=== PATIENT | male | born 1995 | race Caucasian/White ===

== ENCOUNTER 2024-01-29 01:06 | Day surgery (SDC) | payer OTHER, SELFPAY ==
[2024-01-28 19:12] VITALS: BP 104/75
[2024-01-28 19:28] LABS: % Basophils 0.3 % (0-2); % Eosinophils 1.7 % (0-6); % Immature Granulocytes 0.5 % (0-0.5); % Lymphocytes 29.6 % (20.5-51.1); % Monocytes 7.6 % (1.7-9.3); % Neutrophils 60.3 % (42.2-75.2); Absolute Eosinophils 0.1 10^3/uL (0-0.7); Absolute Lymphocytes 1.9 10^3/uL (1.2-3.4); Absolute Monocytes 0.5 10^3/uL (0.1-0.6); Hematocrit 39.7 % (39.0-52.0); Hemoglobin 14.9 g/dL (13.0-18.0); Mean Corp Hgb Conc. 37.5 g/dL (33.0-37.0); Mean Corpuscular Hgb 31.4 pg (27.0-31.0); Mean Corpuscular Volume 83.8 fL (80.0-94.0); Mean Platelet Volume 9.5 fL (7.4-10.4); Nucleated Red Blood Cells % 0 % (-); Platelet Count 194 10^3/uL (130-400); Red Blood Cell Count 4.74 10^6/uL (4.70-6.10); Red Cell Dist. Width 11.9 % (11.5-14.5); White Blood Cell Count 6.6 10^3/uL (4.8-10.8)
[2024-01-28 19:30] LABS: Urine Albumin Negative (Neg - Trace); Urine Bilirubin Negative (Negative); Urine Character Clear (Clear); Urine Color Straw; Urine Glucose Negative (Negative); Urine Ketone Negative (Negative); Urine Leukocyte Negative (Negative); Urine Nitrite Negative (Negative); Urine Occult Blood Negative (Negative); Urine Specific Gravity 1.005 (<1.030); Urine Urobilinogen Negative (Neg - 1+)
[2024-01-28 19:44] LABS: ALT (SGPT) 19 U/L (0-50); AST (SGOT) 25 U/L (17-59); Albumin 4.6 g/dl (3.5-5.0); Alkaline Phosphatase 44 U/L (38-126); Blood Urea Nitrogen 19 mg/dl (9-20); Calcium 9.4 mg/dl (8.4-10.2); Carbon Dioxide 29 mmol/L (22-30); Chloride 99 mmol/L (98-107); Glucose 90 mg/dl (70-99); Potassium 4.2 mmol/L (3.5-5.1); Sodium 136 mmol/L (135-145); Total Bilirubin 0.9 mg/dl (0.2-1.3); Total Protein 7.3 g/dl (6.3-8.2); eGFR > 60.00
[2024-01-28 19:45] LABS: Lipase 101 U/L (23-300)
[2024-01-28 20:21] VITALS: BP 106/89
--- NOTE | 2024-01-28 20:38 | ED.GENMED ---
History of Present Illness
General
Chief Complaint: Abdominal Pain
Source: patient and family
Exam Limitations: none
Time Seen by Provider: 01/28/24 20:24
Nursing documentation reviewed up to this point in time: agreed with
Travel History
Have you had any contact with someone who has COVID-19?: No
Do you have any symptoms of coronavirus? Fever > 100 degrees, chills, cough, shortness of breath, sore throat, loss of taste or smell, muscle aches, or headache?: No
History of Present Illness
History of Present Illness:
28-year male limited past medical history of crampy lower abdominal pain right greater than left onset a day or 2 ago with loose stools mild nausea no vomiting, no fevers appetite has been diminished but present no prior episodes no foreign travel,
social drinker not excess, no bloody stools, no dysuria no frequency no testicular pain
Past History
Past History
ED Past Medical History: None
ED Past Surgical History: None
Social History
Tobacco: Non-smoker
Alcohol: None
Drug: None
Personal: Single
Living: with family
Employment: Employed
Review of Systems
Review of Systems
All Other Systems: Not applicable
Constitutional: Denies fever, fatigue or chills
EENT: Reports no symptoms
Respiratory: Reports no symptoms
Cardiac: Denies chest pain
ABD/GI: Reports abdominal pain, nausea, diarrhea and pain; Denies anorexia
: Reports no symptoms; Denies dysuria or incontinence
Musculoskeletal: Reports no symptoms
Skin: Reports no symptoms
Neurological: Reports no symptoms
Phy Exam
Physical Exam
Physical Exam:
Physical Exam
General: no apparent distress, not acutely ill
Neck: No joint
Heart: s1/s2 regular rate and rhythm, no murmur. equal radial pulses.
Lungs: no acute respiratory distress. clear bilaterally
Abdomen: Tender right greater than left lower abdomen no CVA tender
Neuro: alert and oriented. no focal neurological deficits
Skin: no rash
Psychiatric: well kept. interactive and cooperative
Extremities: no edema.
Course
Orders/Labs/Results
Orders:
Orders
01/28/24 19:15
IV Insert/Care/Rem.- Treatment PRN
01/28/24 19:19
C-Reactive Protein Urgent
Comment: ADD ON
Complete Blood Count/With Diff Urgent
Comprehensive Metabolic Panel Urgent
Erythrocyte Sed Rate Urgent
Comment: ADD ON
Lipase Urgent
01/28/24 19:21
Urinalysis Reflex To Culture Urgent
Date Specimen was Collected: 01/28/24
Time Specimen was Collected: 19:15
01/28/24 20:32
Iohexol [Omnipaque] See Protocol PO NOW STA
01/28/24 20:33
Add On- LAB Urgent
Tests Added?: esr/crp
CT Abd/pel W Iv And Oral Contr Urgent
Comment:
Reason For Exam: rlq pain
0.9% Sodium Chloride 1000 ml [Nss] 1,000 ml IV BOLUS
Ketorolac [Toradol] 30 mg IV NOW STA
01/28/24 22:08
HYDROmorphone [Dilaudid] 0.5 mg IV NOW STA
Abnormal Lab Results
01/28/24
19:19
MCH 31.4 H pg
(27.0-31.0)
MCHC 37.5 H g/dL
(33.0-37.0)
C-Reactive Protein 35.70 H mg/L
(0.0-10.00)
01/28/24 19:19
01/28/24 19:19
Vital Signs
Initial and Last Documented VS:
Initial Vital Signs
Temp Pulse Resp BP Pulse Ox
98.4 F 69 19 104/75 98
01/28/24 19:12 01/28/24 19:12 01/28/24 19:12 01/28/24 19:12 01/28/24 19:12
Last Documented Vital Signs
Temp Pulse Resp BP Pulse Ox
98.4 F 53 21 110/78 98
01/28/24 19:12 01/28/24 21:45 01/28/24 21:45 01/28/24 21:00 01/28/24 21:45
MDM/Problems Addressed
Differential Diagnosis Includes:
Colitis diverticulitis appendicitis nonspecific abdominal pain infectious diarrhea renal colic
MDM/Problems Addressed:
Abdominal pain
*Radiology
Radiology exam reviewed: preliminary read by ED provider
*Pulse Oximetry
Patient hypoxic: no
*Critical Care Note
Total Time (30-74mins, 75-104mins- exclusive of procedures): Not Applicable
Update Note
Update Note:
Update CT scan report noted, patient does have pain in the right lower quadrant message sent to on-call general surgery will be admitted started on antibiotics
ED Attending Note
-
Portions of this chart may have been created with voice recognition software.� Occasional wrong word or��sound alike� substitutions may have occurred due to the inherent limitations of voice recognition software.
Discharge Plan
Departure
Patient Disposition: Admit
Date of Disposition: 01/28/24
Time of Disposition: 23:19
Admit to: Med/Surg
Presentation/result/management discussed w/ accepting MD/DO: GS
Condition: Good
Discharge Problem:
Acute appendicitis
Prescriptions:
No Action
No Current Medications
0
Referrals:
NONE,* [Active] -
Interventions
Interventions:
*Risk Screen - Suicide Last Done: 01/28/24 19:12
*General Assessment Last Done: 01/28/24 19:12
*Neglect/Abuse Screening Last Done: 01/28/24 19:12
ED- Fall Risk Assessment Last Done: 01/28/24 20:27
*ED COVID-19 Vaccine History Last Done: 01/28/24 19:12
QQ-Bvkile-Ipkykpetxy Assessment Last Done: 01/28/24 20:27
Discharge Date and Time
Print Language: SPANISH
[2024-01-28] MEDS: NSS 1000 IV (20:44)
[2024-01-28] MEDS: OMNIPAQUE 50 ML PO (20:48)
[2024-01-28] MEDS: TORADOL 30 MG IV (20:49)
[2024-01-28 21:00] VITALS: BP 110/78
[2024-01-28 21:06] LABS: Erythrocyte Sed Rate 2 mm/hour (0-20)
[2024-01-28 22:05] VITALS: BP 114/76
[2024-01-28] MEDS: DILAUDID 0.5 MG IV (22:17)
[2024-01-29] VITALS (10 sets, daily range): BP systolic 91–128; BP diastolic 46–84; BMI 22.9
--- NOTE | 2024-01-29 00:28 | HPS.HSE ---
Addendum entered and electronically signed by Eyal Aldrich MD 01/29/24 12:32:
I saw and examined the patient.
The Director Of Education's note was reviewed and I agree with the note.
Comment: 28M acute onset RLQ/suprapubic pain. AFVSS, no leukocytosis. TTP to suprapubic, less to RLQ. CT with non-opacified appendix projecting medially, no sign of perforation. OCTOR debi doshi
Original Note:
Family Physician
-
Family Physician: Olegario Lyn
Chief Complaint
-
Abdominal pain
History of Present Illness
a 28 years old male present in ER with a complain of abdominal pain. Pain started 2 days ago as generalized abdominal pain, then localized at the RLQ. Symptoms associated with nausea, had some episodes of loose stool, and decrease in appetite.
Denied vomiting, constipation, urinary symptoms, chills, fever, chest pain, SOB , or any other symptoms. Patient has no medical history and currently not taking any meds at home.
Medical History
Past Medical History
Past Medical History: Reports None
Past Surgical History: Reports None
Social History
Tobacco: Non-smoker
Alcohol: None
Drug: None
Personal: Single
Living: With Family
Employment: Employed
Family History
Family History: Not pertinent
Allergies / Home Medications
Allergies reflects when Allergies were last updated in [employer].
Home Medications with original date entered in [employer]
Allergy/Medication List:
Patient Allergies
Allergy/AdvReac Type Severity Reaction Status Date / Time
vancomycin Allergy Nausea / Verified 01/28/24 19:15
Vomiting
Home Medications Table - record
�Medication �Instructions �Recorded �Confirmed
No Meds [No Current Medications] 01/28/24 01/28/24
Review of Systems
-
A 12 point ROS was completed and negative except as noted: Yes
Constitutional: Reports No Symptoms
Respiratory: Reports No Symptoms
Cardiac: Reports No Symptoms
Abdomen/GI: Reports Abdominal Pain (RLQ) and Nausea
: Reports No Symptoms
Musculoskeletal: Reports No Symptoms
Skin: Reports No Symptoms
Neurological: Reports No Symptoms
Physical Exam
Vital Signs
Vital Signs
Temp Pulse Resp BP Pulse Ox
98.4 F 53 21 110/78 98
01/28/24 19:12 01/28/24 21:45 01/28/24 21:45 01/28/24 21:00 01/28/24 21:45
Physical Exam
General: No Apparent Distress
Respiratory: Clear
Cardiac: Regular Rhythm
GI: Soft and Tender (RLQ, + McBurney`s point )
Musculoskeletal: No Edema
Neuro: Awake and AO x 3
Psych: Calm
Laboratory Results
-
01/28/24 19:19
01/28/24 19:19
Laboratory Results
Total Bilirubin 0.9 mg/dl (0.2-1.3) 01/28/24 19:19
AST 25 U/L (17-59) 01/28/24 19:19
ALT 19 U/L (0-50) 01/28/24 19:19
Alkaline Phosphatase 44 U/L (38-126) 01/28/24 19:19
Lipase 101 U/L (23-300) 01/28/24 19:19
Data Reviewed
-
CT Scan: Discussed with Patient
Impression/Plan
-
Abdomen/Pelvis shows
Mild to moderate distention of the appendix measuring up to 9.7 mm near the tip. The margins are slightly indistinct. This could suggest mild appendicitis in the proper clinical setting. No evidence perforation or abscess.
IMPRESSION:
Acute Appendicitis
Plan
Admit/observation/ med-sug Dr. Aldrich/ surgical services.
NPO
IVF
Abx
Antiemetics
Analgesics as needed
DVT prophylaxis: Lovenox sq
Code Status Full code
--- NOTE | 2024-01-29 02:30 | PTCARENOTE ---
Pt a 28 years old male present in ER with a complain of abdominal pain. Pain started 2 days ago as generalized abdominal pain. Dx Acute Appendicitis. Arrived on on 01/28 at 02:15. Pt NPO, surgery planned for tomorrow. Pt currently has no
pain. Bed in low position, call light in reach.
[2024-01-29] MEDS: NSS 1000 IV (02:35)
[2024-01-29] MEDS: ZOSYN 50 IV ×3 (02:46→13:38)
[2024-01-29] MEDS: ZOFRAN 4 MG IV (08:15)
--- NOTE | 2024-01-29 12:33 | OR.RPT ---
Operative Report
Operative Report
Primary Surgeon: Elinor
Pre-op Diagnosis: Acute appendicitis
Post-op Diagnosis: Same
Procedure Performed: Laparoscopic appendectomy
Anesthesia Type: GETA
Specimen / Cultures: Appendix
Estimated Blood Loss: 15cc
Complications: None immediate
Operative Findings: Distal appendix dilated, turgid and hyperemic, proximal appendix normal and healthy; scant turbid fluid in the pelvis suctioned
Date of Surgery: 01/29/24
Postoperative diagnosis: Same.
Indications: This 28M developed right lower quadrant/supra-pubic abdominal pain and on workup was found to have acute appendicitis. Laparoscopic appendectomy was elected.
Description of procedure: The patient was placed on the operating table in the supine position. General anesthesia was induced. A time-out was completed verifying correct patient, procedure, site, positioning, and special equipment prior to
beginning this procedure. An orogastric tube was placed. The abdomen was prepped and draped in the usual sterile fashion. A stab incision was made in left upper quadrant and the Veress needle was inserted. Proper position was confirmed by aspiration
and saline meniscus test. The abdomen was insufflated with carbon dioxide to a pressure of 12 mmHg. The patient tolerated insufflation well.
A 5mm optical trocar was then inserted at the left lower quadrant. The laparoscope was inserted and the abdomen inspected. No injuries from initial trocar placement or Veress needle insertion were noted. Additional trocars were then inserted in the
following locations: a 12-mm trocar at the umbilicus and a 5-mm trocar midline in the suprapubic space. The abdomen was inspected and no abnormalities were found. The table was placed in the Trendelenburg position with the right side up. The distal
appendix was posterior under several loops of normal healthy small bowel. The distal appendix was as above. The tip of the appendix was gently grasped with an atraumatic grasper and retracted toward the patient�s feet and abdominal wall. This
maneuver exposed the appendiceal blood supply which was controlled with the voyant device. Following this, a laparoscopic linear cutting stapler with a 45mm zhang load was deployed and used to transect the appendix at its base including a cuff of
cecum. The appendix was placed in an endoscopic retrieval bag, removed through the umbilical port, and passed off the table as a specimen.
We then turned our attention to the staple line, which was noted to be hemostatic. Scant turbid fluid was suctioned from the pelvis. The umbilical trocar site was closed at the fascial level laparoscopically with 2-0 PDS under direct vision.
Secondary trocars were removed under direct vision and noted to be hemostatic. The laparoscope was withdrawn and the abdomen was allowed to collapse. The skin was closed with subcuticular sutures of 4-0 monocryl and topical skin adhesive. The
orogastric tube was removed.
The patient tolerated the procedure well and was taken to the postanesthesia care unit in stable condition.
--- NOTE | 2024-01-29 12:42 | W.DS.TRANS ---
DC Summary - Sizer Hand
-
Discharge Instructions:
Instructions:
Stand-Alone Forms:
Changes to Home Medications: No
Discharge Medications:
DC Medications w/original date entered in [employer]
oxycodone 5 mg tablet 5 - 10 mg (1 - 2 x 5 mg) PO Q4HPRN PRN moderate to severe pain #10 tabs 01/29/24
Home Medication Changes
Pending Results: No
--- NOTE | 2024-01-29 13:35 | PTCARENOTE ---
Patient received from PACU in bed; Surgical site assessed, 3 lap sites and 1 puncture site open to air with glue; Patient states pain is moderate; Denies nausea/vomiting; IVF infusing; Call judge within reach; Bed in lowest position, wheels locked;
Patient on room air; Assessment ongoing
[2024-01-29] MEDS: DILAUDID 0.5 MG IV (13:37)
--- NOTE | 2024-01-29 14:28 | CM ---
CM met with pt and mother post-op
Pt slept through assessment
Pt resides with his parents
Thy are available for post discharge care
No dc needs noted
OBS form verbally reviewed- copy provided
Discharge Disposition- home, no needs
[2024-01-29] MEDS: NSS IV (17:10)
== END 2024-01-29 17:59 | disposition home or self-care (01) ==
LOC: SDS 01:06
PROVIDERS: Emergency Medicine; ATTENDING PHYSICIAN Surgery; EMERGENCY PHYSICIAN Emergency Medicine; FAMILY PHYSICIAN Family Medicine
DX: K35.80 Unspecified acute appendicitis (principal)
CPT/HCPCS: 44970; 88304; 74177; 80053; 81003; 83690; 85025; 85652; 86140; 99285; Q9967